=== PATIENT | male | born 1970 | race Caucasian/White ===

== ENCOUNTER 2017-01-29 19:35 | Emergency (ER) | payer BC ==
[~2017-01-29] VITALS: Ht 180.3 cm; Wt 102.3 kg
[~2017-01-29 19:35] MED LIST: PRED5PAK PO; Z.0.NO CURRENT MEDS
[2017-01-29 19:50] VITALS: BP 144/66; PULSE 64; RESP 14; TEMP 98.3; O2SAT 98
[2017-01-29] MEDS ORDERED: DEXAMETHASONE SOD PHOS 20 MG/5 ML VIAL IM ONE (20:00)
[2017-01-29] MEDS ORDERED: ZANT150T2 PO (20:02)
[2017-01-29] MEDS ORDERED: PRED10PA2 PO (20:02)
--- NOTE | 2017-01-29 20:02 | PD ---
HPI Chief Complaint: Skin Problem Time Seen by Provider: 19:57 Travel History International Travel<30 days: No Contact w/Intl Traveler<30days: No Traveled to known affect area: No History of Present Illness HPI 46-year-old male presents to emergency department with itchy rash and hives since yesterday. Patient states he has had reactions to [place] pollen in the past. Patient states he walks between 2 palm trees yesterday and a rust up against him and that seems to start his reaction. He denies any other changes in his exposure history. He is having no difficulty swallowing or breathing. All and topical ointment without much improvement. He notes it is worse if he gets overheated. He has no known drug allergies PFS Past Medical History Medical History: Denies Significant Hx Diminished Hearing: No Tetanus Vaccination: > 5 Years Influenza Vaccination: No Past Surgical History Other Surgery: Yes (RHINOPLASTY 1987) Social History Alcohol Use: Yes (Occ.) Tobacco Use: No Substance Use: No Allergies-Medications (Allergen,Severity, Reaction): Coded Allergies: No Known Allergies (Verified , 01/29/17) Reported Meds & Prescriptions Reported Meds & Active Scripts Active No Active Prescriptions or Reported Medications Review of Systems Except as stated in HPI: all other systems reviewed are Neg General / Constitutional: No: Fever Eyes: No: Visual changes HENT: No: Headaches Cardiovascular: No: Chest Pain or Discomfort Respiratory: No: Shortness of Breath Gastrointestinal: No: Abdominal Pain Genitourinary: No: Dysuria Musculoskeletal: No: Pain Skin: Positive Rash, Positive Itching Neurologic: No: Weakness Psychiatric: No: Depression Endocrine: No: Polydipsia Hematologic/Lymphatic: No: Easy Bruising Physical Exam Narrative GENERAL: Patient appears in no acute distress. SKIN: Warm and dry. Normal color. Normal turgor. Patient has hives to his trunk and forearms consistent with allergic reaction. HEAD: Atraumatic. Normocephalic. EYES: Pupils equal and round. No scleral icterus. No injection or drainage. ENT: No nasal bleeding or discharge. Mucous membranes pink and moist. Pharynx is clear. Airway is patent. NECK: Trachea midline. Supple nontender. CARDIOVASCULAR: Regular rate and rhythm. RESPIRATORY: No accessory muscle use. Clear to auscultation. Breath sounds equal bilaterally. MUSCULOSKELETAL: Extremities without clubbing, cyanosis, or edema. No obvious deformities. NEUROLOGICAL: Awake and alert. No obvious cranial nerve deficits. Motor grossly within normal limits. Five out of 5 muscle strength in the arms and legs. Normal speech. PSYCHIATRIC: Appropriate mood and affect; insight and judgment normal. Data Data Last Documented VS Vital Signs Date Time Temp Pulse Resp B/P Pulse Ox O2 Delivery O2 Flow Rate FiO2 01/29/17 19:50 98.3 64 14 144/66 98 Orders Dexamethasone Inj (Decadron Inj) (01/29/17 20:00) [facility] Medical Decision Making Medical Screen Exam Complete: Yes Emergency Medical Condition: Yes Differential Diagnosis Allergic reaction. Hives. Dermatitis. Narrative Course Patient is medically stable at time of exam. Patient is given Decadron 10 mg IM. Patient be discharged home on prednisone tapering pack as directed. Patient is continue Benadryl as needed for the next several days. Patient also placed on ranitidine 150 mg twice a day for 10 days. Patient follow-up with his primary care physician as needed or return to emergency Department with worsening symptoms as discussed. Diagnosis Primary Impression: Hives of unknown origin Additional Impression: Allergic dermatitis Referrals: Primary Care Physician Patient Instructions: General Allergic Reaction (ED), General Instructions Additional Instructions: Patient is given Decadron 10 mg IM. Patient be discharged home on prednisone tapering pack as directed. Patient is continue Benadryl as needed for the next several days. Patient also placed on ranitidine 150 mg twice a day for 10 days. Patient follow-up with his primary care physician as needed or return to emergency Department with worsening symptoms as discussed. Med/Other Pt SpecificInfo: Prescription(s) given Scripts No Active Prescriptions or Reported Meds Disposition: 01 DISCHARGE HOME Condition: Stable Rayo Torres January 29, 2017 20:01
== END 2017-01-29 20:20 | disposition home or self-care (01) ==
LOC: PHEFT 19:35
DX: L50.9 Urticaria, unspecified (principal); L23.9 Allergic contact dermatitis, unspecified cause
CPT/HCPCS: 96372; 99283; J1100